=== PATIENT | male | born 1980 | race Caucasian/White ===

== ENCOUNTER 2022-10-09 01:18 | Emergency (ER) | payer SELFPAY ==
[~2022-10-09] VITALS: Ht 162.6 cm; Wt 64.5 kg
[2022-10-09 02:36] VITALS: BP 130/89; PULSE 84; RESP 16; TEMP 98.4; O2SAT 98
== END 2022-10-09 06:00 | disposition left against medical advice (07) ==
LOC: ER 01:18
DX: Z53.21 Procedure and treatment not carried out due to patient leaving prior to being seen by health care provider (principal)
CPT/HCPCS: 99281; Z7610 ×2